=== PATIENT | female | born 1950 | race Caucasian/White ===

== ENCOUNTER → 2024-03-23 | Outpatient (CLI) | payer MEDICARE ==
--- NOTE | 2024-03-23 12:23 | HMCIMG ---
DIAGNOSTIC MAMMOGRAM WITH TOMOSYNTHESIS HISTORY: ABN MAMMOGRAM INCONCLUSIVE COMPARISON: 02/24/2024 TECHNIQUE: Bilateral digital diagnostic mammogram was performed. Focal spot compression views were obtained area in question on the left. were obtained. Tomosynthesis was performed.CAD was performed as well. FINDINGS: Parenchymal density: There are scattered areas of fibroglandular density. There is mild parenchymal asymmetry upper inner quadrant of the left breast compared with the right. This area appears to efface on focal spot compression views without evidence of underlying mass or architectural distortion. Tomographic images of both breast also show normal findings, no significant focal mass. There are no pathologic appearing calcifications. There is no architectural distortion in either breast. There is no evidence of nipple retraction or skin thickening. IMPRESSION: 1. Repeat tomographic images as well as focal spot compression views show mild parenchymal asymmetry on the left but no evidence of a focal underlying mass lesion. 2. Remaining portions of both breasts remain negative. The patient was entered into a reminder system with a target due date for their next mammogram. BI-RADS CATEGORY 1: NEGATIVE Recommend monthly self breast exam as well as annual clinical examination. A negative x-ray should not delay biopsy if a dominant or clinically suspicious mass is present, since 8-10% of cancers are not identified by mammography. Dense breasts particularly, may obscure an underlying neoplasm. Some of these may be detected clinically and therefore, clinical examination is an essential part of breast evaluation.
== END | disposition home or self-care (01) ==
LOC: RAH 10:54
PROVIDERS: ATTEND Physician Assistant
DX: R92.323 Mammographic fibroglandular density, bilateral breasts (principal); R92.8 Other abnormal and inconclusive findings on diagnostic imaging of breast; N64.89 Other specified disorders of breast
CPT/HCPCS: 77062; 77066